=== PATIENT | female | born 1985 | race Asian ===

== ENCOUNTER 2016-10-19 20:19 | Emergency (ER) | payer SELFPAY ==
[~2016-10-19] VITALS: Ht 167.6 cm; Wt 65.0 kg
[2016-10-19] MEDS ORDERED: LORAZEPAM 1MG TABLET PO ONE (22:00)
[2016-10-20 01:21] VITALS: BP 128/84
== END 2016-10-20 01:23 | disposition home or self-care (01) ==
LOC: ER 21:06
DX: F41.0 Panic disorder [episodic paroxysmal anxiety] (principal); F32.9 Major depressive disorder, single episode, unspecified
CPT/HCPCS: 81025; 99284